=== PATIENT | female | born 1990 | race African-American/Black ===

== ENCOUNTER 2017-02-20 21:14 | Emergency (ER) | payer OTHER ==
[2017-02-20 21:25] VITALS: BP 146/98; PULSE 84; TEMP 98.4; BMI 19.3
--- NOTE | 2017-02-20 21:27 | PDOC ---
Rapid Medical Evaluation Chief Complaint: Nausea/Vomiting Time Seen by Provider: 02/20/17 21:25 Medical Evaluation: Allergies Allergy/AdvReac Type Severity Reaction Status Date / Time Penicillins Allergy Verified 01/18/15 18:59 02/20/17 21:25 I have performed a brief in-person evaluation of this patient. The patient presents with a chief complaint of: N/V since Sunday Pertinent physical exam findings: n/a I have ordered the following: cbc, cmp, etoh, urinalysis, urine preg, The patient will proceed to the ED for further evaluation. LNMP: Jan 24
[2017-02-20 21:44] LABS: URINE APPEARANCE SLCLOUDY; URINE BILIRUBIN NEGATIVE (NEGATIVE); URINE BLOOD NEGATIVE (NEGATIVE); URINE COLOR YELLOW; URINE GLUCOSE (UA) NEGATIVE (NEGATIVE); URINE KETONE 2+ (NEGATIVE); URINE NITRITE NEGATIVE (NEGATIVE); URINE UROBILINOGEN NEGATIVE mg/dL (0.2-1.0)
[2017-02-20 21:59] LABS: URINE PROTEIN 1+ (NEGATIVE)
[2017-02-20 22:02] LABS: CALCIUM OXALATE CRYSTALS RARE /hpf (NONE SEEN); URINE MUCUS MANY; URINE RBC 3 /hpf (0-3); URINE WBC 9 /hpf (3-5)
[2017-02-20 22:08] LABS: BASOPHIL 0.8 % (0-2.0); EOSINOPHIL 0.3 % (0-4.5); MCH 31.8 pg (25.7-33.7); MCHC 33.6 g/dl (32.0-36.0); MEAN CELL VOLUME 94.5 fl (80-96); MEAN PLT VOLUME 10.2 fl (7.5-11.1); NEUTROPHILS 68.8 % (42.8-82.8); PLATELET COUNT 240 K/MM3 (134-434); WHITE BLOOD COUNT 7.7 K/mm3 (4.0-10.0)
[2017-02-20 22:24] LABS: ALBUMIN 4.5 g/dl (3.4-5.0); ALK PHOS 63 U/L (45-117); ANION GAP 9 (8-16); CALCIUM 9.3 mg/dL (8.5-10.1); CO2 28 mmol/L (21-32); CREATININE 0.8 mg/dL (0.55-1.02); GLUCOSE,RANDOM 108 mg/dL (74-106); SGOT/AST 14 U/L (15-37); SGPT/ALT 21 U/L (12-78); TOT PROT 8.3 g/dl (6.4-8.2)
[2017-02-20] MEDS ORDERED: METOCLOPRAMIDE HCL INJECTION 10 MG/2 ML VIAL IVPUSH ONE (22:26)
[2017-02-20] MEDS ORDERED: SODIUM CHLORIDE 1,000 ML IV STA ×2 (22:26→22:28)
[2017-02-20] MEDS ORDERED: METOCLOPRAMIDE HCL INJECTION 10 MG/2 ML VIAL ONE (22:39)
--- NOTE | 2017-02-20 22:49 | PDOC ---
History of Present Illness - General History Source: Patient, Old Records Exam Limitations: No Limitations - History of Present Illness Initial Comments: 02/20/17 22:51 The patient is a 26 year old female with no significant past medical history who presents to the emergency department complaining of nausea for 3 days. The patient states that she last felt normal on Sunday and notes that she drank alcohol Sunday night but only a little. Since, the patient reports associated decreased appetite and vomiting. She denies any recent sick contacts at home or at work. <Tres Albright - Last Filed: 02/20/17 22:51> - General History Source: Patient <Terry Lares - Last Filed: 02/21/17 00:41> - General Chief Complaint: Nausea/Vomiting Stated Complaint: NAUSEA/VOMITING Time Seen by Provider: 02/20/17 22:23 Past History <Tres Albright - Last Filed: 02/20/17 22:51> - Past Medical History COPD: No Disorders: Yes (ovarian cyst) - Reproductive History Cervical CA: No Dysfunctional Uterine Bleeding: No Ectopic : No Endometrial CA: No Polycystic Ovaries: No Therapeutic (s) & number: No Tubal Ligation: No - Immunization History Immunization Up to Date: No - Suicide/Smoking/Psychosocial Hx Smoking History: Never smoked Have you smoked in the past 12 months: No Hx Alcohol Use: No Drug/Substance Use Hx: No Substance Use Type: None <DagojairTerry cohen - Last Filed: 02/21/17 00:41> - Past Medical History Allergies/Adverse Reactions: Allergies Allergy/AdvReac Type Severity Reaction Status Date / Time Penicillins Allergy Verified 02/20/17 21:25 Home Medications: Ambulatory Orders Sulfamethoxazole/Trimethoprim [Bactrim Ds Tablet] 1 each PO BID #10 tablet 05/06 Ondansetron [Zofran Odt -] 4 mg SL BID #10 tab.rapdis 02/21/17 Review of Systems - Review of Systems Able to Perform ROS?: Yes Comments:: 02/20/17 22:51 CONSTITUTIONAL: Absent: fever, no chills, no fatigue EYES: Absent: visual changes ENT: Absent: ear pain, no sore throat CARDIOVASCULAR: Absent: chest pain, no palpitations RESPIRATORY: Absent: cough, no SOB GI: (+) Nausea, Vomiting Absent: abdominal pain, no constipation, no diarrhea GENITOURINARY: Absent: dysuria, no frequency, no hematuria MUSCULOSKELETAL: Absent: back pain, no arthralgia, no myalgia SKIN: Absent: rash <Tres Albright - Last Filed: 02/20/17 22:51> *Physical Exam - Vital Signs Last Vital Signs Temp Pulse Resp BP Pulse Ox 98.4 F 84 18 146/98 98 02/20/17 21:23 02/20/17 21:23 02/20/17 21:23 02/20/17 21:23 02/20/17 21:23 - Physical Exam Comments: 02/20/17 22:51 GENERAL: (+) Mild distress, well-nourished\ HEENT: (+) Dry oral mucosa. Normocephalic, atraumatic. PERRL, EOM intact. CARDIOVASCULAR: Normal S1, S2. Regular rate and rhythm. PULMONARY: Clear to auscultation bilaterally. ABDOMEN: Soft, non-distended, non-tender. EXTREMITIES: Normal ROM in all four extremities. No gross deformities. SKIN: Warm, dry. No rash NEUROLOGICAL: No focal neurological deficits <Tres Albright - Last Filed: 02/20/17 22:51> - Vital Signs Last Vital Signs Temp Pulse Resp BP Pulse Ox 98.4 F 84 18 146/98 98 02/20/17 21:23 02/20/17 21:23 02/20/17 21:23 02/20/17 21:23 02/20/17 21:23 <Terry Lares - Last Filed: 02/21/17 00:41> ED Treatment Course - LABORATORY CBC & Chemistry Diagram: 02/20/17 21:30 02/20/17 21:30 - ADDITIONAL ORDERS Additional order review: Laboratory Results 02/20/17 02/20/17 21:30 21:30 Urine Color Yellow Urine Appearance Slcloudy Urine pH 6.0 Ur Specific [place] 1.029 Urine Protein 1+ H Urine Glucose (UA) Negative Urine Ketones 2+ H Urine Blood Negative Urine Nitrite Negative Urine Bilirubin Negative Urine Urobilinogen Negative Ur Epithelial Cells Many Calcium Oxalate Crystal Rare Urine Mucus Many Urine HCG, Qual Negative Alcohol, Quantitative < 5.0 02/20/17 21:30 RBC 4.25 MCV 94.5 MCHC 33.6 RDW 13.0 D MPV 10.2 Neutrophils % 68.8 Lymphocytes % 22.7 D Monocytes % 7.4 Eosinophils % 0.3 D Basophils % 0.8 <Tres Albright - Last Filed: 02/20/17 22:51> - LABORATORY CBC & Chemistry Diagram: 02/20/17 21:30 02/20/17 21:30 - ADDITIONAL ORDERS Additional order review: Laboratory Results 02/20/17 11 21:30 21:30 Urine Color Yellow Urine Appearance Slcloudy Urine pH 6.0 Ur Specific [place] 1.029 Urine Protein 1+ H Urine Glucose (UA) Negative Urine Ketones 2+ H Urine Blood Negative Urine Nitrite Negative Urine Bilirubin Negative Urine Urobilinogen Negative Ur Epithelial Cells Many Calcium Oxalate Crystal Rare Urine Mucus Many Urine HCG, Qual Negative Alcohol, Quantitative < 5.0 02/20/17 21:30 RBC 4.25 MCV 94.5 MCHC 33.6 RDW 13.0 D MPV 10.2 Neutrophils % 68.8 Lymphocytes % 22.7 D Monocytes % 7.4 Eosinophils % 0.3 D Basophils % 0.8 <Terry Lares - Last Filed: 02/21/17 00:41> Medical Decision Making - Medical Decision Making 02/20/17 22:55 Dr. Lares: The scribe's documentation has been prepared under my direction and personally reviewed by me in its entirery. I confirm that the note above accurately reflects all work, treatment, procedures, and medical decision making performed by me. <Terry Lares - Last Filed: 02/21/17 00:41> *DC/Admit/Observation/Transfer - Attestations Scribe Attestion: 02/20/17 22:52 Documentation prepared by Tres Albright, acting as medical assistant dermatology for Terry Lares DO. <Tres Albright - Last Filed: 02/20/17 22:51> - Discharge Dispostion Admit: No <Terry Lares - Last Filed: 02/21/17 00:41> Diagnosis at time of Disposition: Nausea & vomiting - Discharge Dispostion Disposition: HOME Condition at time of disposition: Improved - Referrals Referrals: Latrice Ricks MD [Staff Physician] - Jayleen Pierre MD [Staff Physician] - - Patient Instructions Printed Discharge Instructions: DI for Nausea -- Adult, DI for Vomiting -- Adult
[2017-02-20] MEDS ORDERED: ONDANSETRON 4 MG/2 ML VIAL IVPUSH STA (23:15)
[2017-02-20 23:23] LABS: MAGNESIUM 2.4 mg/dL (1.8-2.4)
[2017-02-20] MEDS ORDERED: ONDANSETRON 4 MG/2 ML VIAL ONE (23:23)
[2017-02-20] MEDS ORDERED: POTASSIUM CHLORIDE TABS 20 MEQ TABLET.ER (FP) PO ONE (23:35)
[2017-02-21 09:16] LABS: URINE LEUK ESTERASE TRACE (NEGATIVE)
== END 2017-02-21 00:44 | disposition home or self-care (01) ==
LOC: JER 21:14
PROC: 3E0337Z Introduction of Electrolytic and Water Balance Substance into Peripheral Vein, Percutaneous Approach (ICD-10-PCS; principal; 2017-02-20)
PROC: 3E033GC Introduction of Other Therapeutic Substance into Peripheral Vein, Percutaneous Approach (ICD-10-PCS; 2017-02-20)
PROC: 3E033GC Introduction of Other Therapeutic Substance into Peripheral Vein, Percutaneous Approach (ICD-10-PCS; 2017-02-20)
DX: R11.2 Nausea with vomiting, unspecified (principal); E87.6 Hypokalemia
CPT/HCPCS: 36415; 80053; 80307; 81003; 81015; 83690; 83735; 84703; 85025; 99282-25

== ENCOUNTER 2017-10-30 11:37 | Emergency (ER) | payer OTHER ==
[2017-10-30 11:51] VITALS: BMI 21.4
[2017-10-30] MEDS ORDERED: ONDANSETRON 4 MG/2 ML VIAL IVPUSH ONE ×2 (12:38→13:05)
[2017-10-30] MEDS ORDERED: SODIUM CHLORIDE 1,000 ML IV STA (12:38)
[2017-10-30] MEDS ORDERED: FAMOTIDINE 20 MG/50 ML IVPB 20 MG/50 ML MG IVPB ONE ×2 (12:38→13:04)
--- NOTE | 2017-10-30 12:47 | PDOC ---
History of Present Illness - General Chief Complaint: Nausea/Vomiting Stated Complaint: VOMITING, FATIGUE Time Seen by Provider: 10/30/17 12:23 History Source: Patient Exam Limitations: No Limitations - History of Present Illness Initial Comments: 10/30/17 12:39 This is a 27 YOF with h/o multiple episodes of gastritis (admitted a few times for gastritis in the past year) who p/w nausea and nonbloody vomiting, too many episodes to count, and inability to keep down any solids (but able to keep down fluids) over the past 4 days. She denies abdominal pain and states this does not feel like her prior gastritis because it has always presented with abdominal pain, which she does not have currently. She had been on vacation for a few weeks and was in [place], drinking EtOH heavily, and drinking tap water, but not eating any questionable foods. She binge drank EtOH just prior to the onset of vomiting. LMP was last week, denies a chance she is , never had pancreatitis diagnosed in the past, denies fever, chills, diarrhea, constipation, black/bloody stool, rash, MCINTOSH, dizziness, chest pain, SOB, palpitations, leg swelling or pain/tenderness. Past History - Past Medical History Allergies/Adverse Reactions: Allergies Allergy/AdvReac Type Severity Reaction Status Date / Time Penicillins Allergy Verified 10/30/17 11:47 Home Medications: Ambulatory Orders NK [No Known Home Medication] 10/23/17 COPD: No GI Disorders: Yes (GASTRITIS) Disorders: Yes (ovarian cyst) - Reproductive History Cervical CA: No Dysfunctional Uterine Bleeding: No Ectopic : No Endometrial CA: No Polycystic Ovaries: No Therapeutic (s) & number: No Tubal Ligation: No - Immunization History Immunization Up to Date: No - Suicide/Smoking/Psychosocial Hx Smoking History: Current some day smoker Have you smoked in the past 12 months: Yes Information on smoking cessation initiated: No Hx Alcohol Use: No Drug/Substance Use Hx: No Substance Use Type: None Abd/GI Specific PMHX - Complaint Specific PMHX Colitis: No Diverticulitis: No Gall Bladder Disease: No GERD: No Hepatitis: No Irritable Bowel Synd (IBS): No Pancreatitis: No GI Ulcer Disease: No Review of Systems - Review of Systems Able to Perform ROS?: Yes Constitutional: No: Chills, Fever, Unexplained wgt Loss HEENTM: No: Nose Congestion, Throat Pain Respiratory: No: Cough, Shortness of Breath Cardiac (ROS): No: Chest Pain, Palpitations ABD/GI: Yes: Nausea, Vomiting, Other (denies abdominal pain). No: Constipated, Diarrhea, Rectal Bleeding : No: Burning, Dysuria Musculoskeletal: No: Back Pain, Neck Pain Integumentary: No: Bruising, Rash Neurological: No: Headache, Numbness, Tingling, Weakness, Dizziness Endocrine: No: Unexplained Weight Gain, Unexplained Weight Loss *Physical Exam - Vital Signs Last Vital Signs Temp Pulse Resp BP Pulse Ox 98.5 F 83 19 141/86 99 10/30/17 11:47 10/30/17 11:47 10/30/17 11:47 10/30/17 11:47 10/30/17 11:47 - Physical Exam General Appearance: Yes: Nourished, Appropriately Dressed, Other (a bit tearful but comfortable appearing, not actively vomiting but has emesis bag in hand with small amount of saliva-like emesis, answers questions appropriately). No: Apparent Distress HEENT: positive: EOMI, RIO, Normal Voice, Hearing Grossly Normal. negative: Scleral Icterus (R), Scleral Icterus (L), Nasal Congestion Neck: positive: Trachea midline, Supple. negative: Tender, Rigid Respiratory/Chest: positive: Lungs Clear, Normal Breath Sounds. negative: Respiratory Distress, Crackles, Rhonchi, Stridor, Wheezing Cardiovascular: positive: Regular Rhythm, Regular Rate, S1, S2. negative: Edema , JVD, Murmur Gastrointestinal/Abdominal: positive: Normal Bowel Sounds, Flat, Soft. negative : Tender, Organomegaly, Pulsatile Mass, Guarding Musculoskeletal: positive: Normal Inspection. negative: Decreased Range of Motion, Vertebral Tenderness Extremity: positive: Normal Capillary Refill, Normal Inspection, Normal Range of Motion. negative: Tender, Cyanosis Integumentary: positive: Normal Color, Dry, Warm. negative: Erythema, Rash, Bruising Neurologic: positive: seam taper machine II-XII NML intact (grossly), Fully Oriented, Alert, Normal Mood/Affect, Normal Response, Motor Strength 5/5 ED Treatment Course - LABORATORY CBC & Chemistry Diagram: 10/30/17 13:10 10/30/17 13:10 Medical Decision Making - Medical Decision Making Adult female patient p/w n/v and inability to keep down solids in the setting of heavy EtOH use before the onset 4d ago. Initial Vital Signs Temp Pulse Resp BP Pulse Ox 98.5 F 83 19 141/86 99 10/30/17 11:47 10/30/17 11:47 10/30/17 11:47 10/30/17 11:47 10/30/17 11:47 Exam: As noted in Physical Exam section. DDX IBNLT: pancreatitis, gastritis, gastroenteritis, cholecystitis, , cannabis hyperemesis syndrome, withdrawal from EtOH or drugs, etc. W/U ordered: Labs as noted below, EKG TX ordered: IVF Pepcid Zofran EKG: Reviewed; results as noted in ECG Review section. Laboratory Tests 10/30/17 10/30/17 10/30/17 13:10 13:10 13:10 WBC 10.3 H RBC 4.03 Hgb 13.1 Hct 38.3 MCV 95.0 MCH 32.4 MCHC 34.1 RDW 12.6 Plt Count 271 MPV 9.8 Absolute Neuts (auto) 6.9 Neutrophils % 67.5 Lymphocytes % 21.9 Monocytes % 8.7 Eosinophils % 1.2 D Basophils % 0.7 Nucleated RBC % 0 Sodium 136 Potassium 3.1 L Chloride 98 Carbon Dioxide 30 Anion Gap 8 BUN 18 Creatinine 0.9 Creat Clearance w eGFR > 60 Random Glucose 86 Calcium 9.3 Phosphorus 3.9 Magnesium 2.8 H Total Bilirubin 1.9 H AST 16 ALT 21 Alkaline Phosphatase 63 Total Protein 8.3 H Albumin 4.2 Lipase 666 H Serum , Qual Negative Patient mildly hypokalemic and PO potassium ordered but patient vomits this pill immediately. She also vomits an emesis bag full of green fluid at this time. 10 mg Reglan given IVPB. Also 10 mEq KCl given IVPB. Patient states very reluctant to stay overnight; she has an important job interview tomorrow. Reassessment: Repeat VS: ADMIT The Pt is unsafe for discharge at this time. They require further hospital observation, workup, and treatment. Microblog sent to [facility] for admission. Spoke with admitting team petroleum products sales representative, in agreement Pt to be admitted. Decision to Admit order placed to [facility] covering attending DISCHARGE The Pt has gotten significant relief of symptoms with ED medications. Workup is not concerning for emergency-level pathology at this time. The Pt is appropriate for discharge with close outpatient follow up. They are comfortable with this plan and will follow up with their PCP in 1-3 days. Specific return precautions are discussed and they will come back to the ER if necessary. 10/30/17 15:57 *DC/Admit/Observation/Transfer - Referrals - Patient Instructions Additional Instructions: You were seen in the ER for nausea and vomiting. We did an exam, labs, an electrocardiogram, and an ultrasound. Your pancreas enzyme (called a lipase) was a bit elevated. We gave you medications to help with your vomiting and these seemed to help. We recommended to you that you stay in the hospital, but you chose to go home because you have important business to attend to tomorrow. We asked you to sign a "leaving against medical advice" form because our official recommendation is that you stay in the hospital. The reason for this is that you could have a dangerous disease process going on right now; we would need to keep you overnight in the hospital in order to know for sure. Please follow up with your regular PCP as soon as possible. Also follow up with our GI provider (we are providing referral information in this packet). Call their clinic, tell them you were seen in the ER, and tell them you need a follow-up. Please consider coming back to the ER for further evaluation. If you have any new or worsening symptoms, please come back to the ER at any time (24 hours a day). If you are having severe or life threatening symptoms, or symptoms that make it unsafe to drive or have someone drive you, please call 911. - Post Discharge Activity
[2017-10-30] MEDS ORDERED: ONDANSETRON 4 MG/2 ML VIAL ONE (13:04)
--- NOTE | 2017-10-30 13:25 | PDOC ---
Attending Attestation - Resident Resident Name: Ying,Suzette - ED Attending Attestation I have performed the following: I have examined & evaluated the patient, The case was reviewed & discussed with the resident, I agree w/resident's findings & plan, Exceptions are as noted - HPI HPI: 10/30/17 13:03 27 year old female c/ PMH of gastritis p/w nausea and vomiting x 4 days. The patient was recently vacationing in [place]. While in [place], patient developed multiple episodes of vomiting. Denies abdominal pain, fevers, chills, diarrhea. States normal bowel movements. Denies sick contacts. Unsure if she was sick from the water. States that this feels very different from her gastritis. - Physicial Exam PE: 10/30/17 13:07 GENERAL: Awake, alert, and fully oriented, in no acute distress HEAD: No signs of trauma EYES: EOMI, sclera anicteric, conjunctiva clear ENT: Auricles normal inspection, hearing grossly normal, nares patent. Dry mucous membranes NECK: Normal ROM, supple ABDOMEN: Soft, nontender, No guarding, no rebound. No masses EXTREMITIES: Normal range of motion, no edema. No clubbing or cyanosis. No cords, erythema, or tenderness NEUROLOGICAL: Cranial nerves II through XII grossly intact. Normal speech SKIN: Warm, Dry, normal turgor, no rashes or lesions noted. - Medical Decision Making 10/30/17 13:07 Vital Signs Temp Pulse Resp BP Pulse Ox 98.5 F 83 19 141/86 99 10/30/17 11:47 10/30/17 11:47 10/30/17 11:47 10/30/17 11:47 10/30/17 11:47 27 year old female with nausea and vomiting. Differential includes food poisoning, gastritis, gastroenteritis. Will perform a test to r/o hyperemesis gravidarum. Pt denies recent marijuana use. Less likely to be cyclical vomiting. Will obtain labs, give IV hydration for dehydration, and anti-emetics and reassess. 10/30/17 14:23 CBC, BMP 10/30/17 13:10 10/30/17 13:10 CMP Sodium 136 mmol/L (136-145) 10/30/17 13:10 Potassium 3.1 mmol/L (3.5-5.1) L 10/30/17 13:10 Chloride 98 mmol/L (98-107) 10/30/17 13:10 Carbon Dioxide 30 mmol/L (21-32) 10/30/17 13:10 Anion Gap 8 (8-16) 10/30/17 13:10 BUN 18 mg/dL (7-18) 10/30/17 13:10 Creatinine 0.9 mg/dL (0.55-1.02) 10/30/17 13:10 Creat Clearance w eGFR > 60 (>60) 10/30/17 13:10 Random Glucose 86 mg/dL (74-106) 10/30/17 13:10 Calcium 9.3 mg/dL (8.5-10.1) 10/30/17 13:10 Phosphorus 3.9 mg/dL (2.5-4.9) 10/30/17 13:10 Magnesium 2.8 mg/dL (1.8-2.4) H 10/30/17 13:10 Total Bilirubin 1.9 mg/dL (0.2-1.0) H 10/30/17 13:10 AST 16 U/L (15-37) 10/30/17 13:10 ALT 21 U/L (12-78) 10/30/17 13:10 Alkaline Phosphatase 63 U/L (45-117) 10/30/17 13:10 Total Protein 8.3 g/dl (6.4-8.2) H 10/30/17 13:10 Albumin 4.2 g/dl (3.4-5.0) 10/30/17 13:10 Lipase 666 U/L (73-393) H 10/30/17 13:10 Serum , Qual Negative 10/30/17 13:10 Lipase 666. Will treat as pancreatitis. Obtain a RUQ ultrasound. Reasssess. 10/30/17 14:55 Ultrasound reviewed. No acute findings. Pt has been very insistent on going home. It is unclear if this is truly pancreatitis as the patient has no abdominal pain, but does have vomiting. Given these findings, I initially would have wanted to treat the patient as such. However, the patient has been able to tolerate PO liquid but not solids. However, has been still vomiting here in the ED. I advised the patient that she should likely benefit from an admission, but the patient reports that she has a really important job interview tomorrow. The patient does seem to be able to tolerate some PO, and the patient is able to give adequate reason why she couldn 't stay. Will allow her to be discharged with very strict return precautions and have her follow up with a GI practice consultant. Heart Score/ECG Review #1 ECG reviewed & interpreted by me at: 13:45 10/30/17 13:48 NSR 74, no std/jose luis, normal axis, normal intervals, QTC 457 msec
[2017-10-30 13:26] LABS: BASO % 0.7 % (0-2.0); EOS % 1.2 % (0-4.5); HEMATOCRIT 38.3 % (32.4-45.2); HEMOGLOBIN 13.1 GM/dL (10.7-15.3); LYMPH % 21.9 % (8-40); MCH 32.4 pg (25.7-33.7); MCHC 34.1 g/dl (32.0-36.0); MEAN PLT VOLUME 9.8 fl (7.5-11.1); MONO % 8.7 % (3.8-10.2); NEUT % 67.5 % (42.8-82.8); PLATELET COUNT 271 K/MM3 (134-434); RBC 4.03 M/mm3 (3.60-5.2); RDW 12.6 % (11.6-15.6); WHITE BLOOD COUNT 10.3 K/mm3 (4.0-10.0)
[2017-10-30 13:43] LABS: BLOOD UREA NITROGEN 18 mg/dL (7-18); CALCIUM 9.3 mg/dL (8.5-10.1); CHLORIDE 98 mmol/L (98-107); GLUCOSE,RANDOM 86 mg/dL (74-106); POTASSIUM 3.1 mmol/L (3.5-5.1); SODIUM 136 mmol/L (136-145)
[2017-10-30 13:46] LABS: ALBUMIN 4.2 g/dl (3.4-5.0); ANION GAP 8 (8-16); CO2 30 mmol/L (21-32); MAGNESIUM 2.8 mg/dL (1.8-2.4); PHOSPHOROUS 3.9 mg/dL (2.5-4.9); SGOT/AST 16 U/L (15-37); SGPT/ALT 21 U/L (12-78)
[2017-10-30 13:48] LABS: ALK PHOS 63 U/L (45-117); BILIRUBIN,TOTAL 1.9 mg/dL (0.2-1.0); CREATININE 0.9 mg/dL (0.55-1.02); LIPASE 666 U/L (73-393); TOT PROT 8.3 g/dl (6.4-8.2)
[2017-10-30] MEDS ORDERED: POTASSIUM CHLORIDE TABS 20 MEQ TABLET.ER (FP) PO ONE ×2 (14:40→14:57)
[2017-10-30] MEDS ORDERED: SODIUM CHLORIDE 0.9% 500 ML INFUS.BAG IV ONE (14:40)
[2017-10-30] MEDS ORDERED: KCL 10 MEQ IVPB 10 MEQ/100 ML INFUS.BAG IVPB ONE (15:03)
[2017-10-30] MEDS ORDERED: METOCLOPRAMIDE HCL INJECTION 10 MG/2 ML VIAL ONE (15:04)
[2017-10-30] MEDS ORDERED: METOCLOPRAMIDE HCL INJECTION 10 MG/2 ML VIAL IVPUSH ONE (15:27)
[2017-10-30] MEDS ORDERED: KCL 10 MEQ IVPB 10 MEQ/100 ML INFUS.BAG IVPB SCH (15:30)
--- NOTE | 2017-10-30 16:55 | PDOC ---
*Physical Exam - Vital Signs Last Vital Signs Temp Pulse Resp BP Pulse Ox 98.0 F 87 18 134/92 100 10/30/17 15:04 10/30/17 15:04 10/30/17 15:04 10/30/17 15:04 10/30/17 15:04 ED Treatment Course - LABORATORY CBC & Chemistry Diagram: 10/30/17 13:10 10/30/17 13:10 - ADDITIONAL ORDERS Additional order review: Laboratory Results 10/30/17 10/30/17 13:10 13:10 Sodium 136 Potassium 3.1 L Chloride 98 Carbon Dioxide 30 Anion Gap 8 BUN 18 Creatinine 0.9 Creat Clearance w eGFR > 60 Random Glucose 86 Calcium 9.3 Phosphorus 3.9 Magnesium 2.8 H Total Bilirubin 1.9 H AST 16 ALT 21 Alkaline Phosphatase 63 Total Protein 8.3 H Albumin 4.2 Lipase 666 H Serum , Qual Negative 10/30/17 13:10 RBC 4.03 MCV 95.0 MCHC 34.1 RDW 12.6 MPV 9.8 Neutrophils % 67.5 Lymphocytes % 21.9 Monocytes % 8.7 Eosinophils % 1.2 D Basophils % 0.7 - RADIOLOGY Radiology Studies Ordered: Category Date Time Status ABDOMEN US [US] Stat Ultrasound 10/30/17 14:30 Completed - Medications Given in the ED: ED Medications Discontinued Medications Generic Name Dose Route Start Last Admin Trade Name Freq PRN Reason Stop Dose Admin Famotidine/Sodium Chloride 20 mg in 50 mls @ 100 mls/hr 10/30/17 12:38 13:12 Pepcid 20 Mg Premixed Ivpb - IVPB 10/30/17 13:07 100 mls/hr ONCE ONE Administration Sodium Chloride 1,000 mls @ 1,000 mls/hr 10/30/17 12:38 10/30/17 13:12 Normal Saline - IV 10/30/17 13:37 1,000 mls/hr ASDIR STA Administration Potassium Chloride 10 meq in 100 mls @ 100 mls/hr 10/30/17 15:30 10/30/17 15: 30 Potassium Chloride 10 Meq Premix Ivpb - IVPB 10/30/17 16:29 100 mls/hr Q60M RULA Administration Metoclopramide HCl 10 mg 10/30/17 15:27 10/30/17 15:30 Reglan Injection - IVPUSH 10/30/17 15:28 10 mg ONCE ONE Administration Ondansetron HCl 8 mg 10/30/17 12:38 10/30/17 13:12 Zofran Injection IVPUSH 10/30/17 12:39 Not Given NOW ONE Ondansetron HCl 4 mg 10/30/17 13:05 10/30/17 13:12 Zofran Injection IVPUSH 10/30/17 13:06 4 mg ONCE ONE Administration Potassium Chloride 20 meq 10/30/17 14:40 10/30/17 15:08 K-Dur - PO 10/30/17 14:41 Not Given ONCE ONE Sodium Chloride 1,000 ml 10/30/17 14:40 10/30/17 15:08 Normal Saline - IV 10/30/17 14:41 1,000 ml ONCE ONE Administration *DC/Admit/Observation/Transfer Diagnosis at time of Disposition: Vomiting Qualifiers: Vomiting type: unspecified Vomiting Intractability: non-intractable Nausea presence: with nausea Qualified Code(s): R11.2 - Nausea with vomiting, unspecified - Discharge Dispostion Disposition: HOME Condition at time of disposition: Stable Decision to Admit order: No - Prescriptions Prescriptions: Famotidine [Pepcid] 20 mg PO BID PRN #14 tablet PRN Reason: Abdominal Pain Ondansetron HCl [Zofran] 4 mg PO Q8H PRN #20 tablet PRN Reason: Nausea Pantoprazole Sodium [Protonix] 40 mg PO DAILY #14 tablet.dr - Referrals Referrals: Omer Avalos MD [Staff Physician] - - Patient Instructions Printed Discharge Instructions: DI for Vomiting -- Adult Additional Instructions: You were seen in the ER for nausea and vomiting. We did an exam, labs, an electrocardiogram, and an ultrasound. Your pancreas enzyme (called a lipase) was a bit elevated. We gave you medications to help with your vomiting and these seemed to help. Given these findings, if you ever feel like you're too nauseous or unable to take your medications, it is very important that you return to the ER. Please follow up with your regular PCP as soon as possible. Also follow up with our GI provider (we are providing referral information in this packet). Call their clinic, tell them you were seen in the ER, and tell them you need a follow-up. Please consider coming back to the ER for further evaluation. If you have any new or worsening symptoms, please come back to the ER at any time (24 hours a day). If you are having severe or life threatening symptoms, or symptoms that make it unsafe to drive or have someone drive you, please call 911. - Post Discharge Activity
[2017-10-30 17:49] VITALS: BP 135/95; PULSE 69; TEMP 99
--- NOTE | 2017-10-31 11:21 | EKG ---
Test Reason : Blood Pressure : / mmHG Vent. Rate : 074 BPM Atrial Rate : 074 BPM P-R Int : 128 ms QRS Dur : 070 ms QT Int : 412 ms P-R-T Axes : -11 073 041 degrees QTc Int : 457 ms NORMAL SINUS RHYTHM NORMAL ECG NO PREVIOUS ECGS AVAILABLE Confirmed by LUZ ANDREW, RICARDO ([id number]) on 10/31/2017 11:21:20 AM Referred By: Confirmed By:RICARDO ESCOBAR MD
== END 2017-10-30 17:09 | disposition home or self-care (01) ==
LOC: JER 11:37
PROC: 3E033GC Introduction of Other Therapeutic Substance into Peripheral Vein, Percutaneous Approach (ICD-10-PCS; principal; 2017-10-30)
PROC: 3E033GC Introduction of Other Therapeutic Substance into Peripheral Vein, Percutaneous Approach (ICD-10-PCS; 2017-10-30)
PROC: 3E033GC Introduction of Other Therapeutic Substance into Peripheral Vein, Percutaneous Approach (ICD-10-PCS; 2017-10-30)
PROC: 3E033GC Introduction of Other Therapeutic Substance into Peripheral Vein, Percutaneous Approach (ICD-10-PCS; 2017-10-30)
PROC: 3E0337Z Introduction of Electrolytic and Water Balance Substance into Peripheral Vein, Percutaneous Approach (ICD-10-PCS; 2017-10-30)
DX: R11.2 Nausea with vomiting, unspecified (principal); F17.210 Nicotine dependence, cigarettes, uncomplicated; Z87.19 Personal history of other diseases of the digestive system
CPT/HCPCS: 36415; 76700-TC; 80053; 83690; 83735; 84100; 84703; 85025; 93005; 93010; 96365; 96367; 96374; 96375; 99282-25; J7030

== ENCOUNTER 2018-01-08 16:20 | Emergency (ER) | payer OTHER ==
[2018-01-08] MEDS ORDERED: SODIUM CHLORIDE 1,000 ML IV STA ×2 (16:37→18:57)
[2018-01-08] MEDS ORDERED: ONDANSETRON 4 MG/2 ML VIAL IVPUSH ONE (16:37)
--- NOTE | 2018-01-08 16:37 | PDOC ---
Rapid Medical Evaluation Chief Complaint: Nausea/Vomiting Time Seen by Provider: 01/08/18 16:35 Medical Evaluation: Allergies Allergy/AdvReac Type Severity Reaction Status Date / Time Penicillins Allergy Verified 10/30/17 11:47 01/08/18 16:36 The patient presents with a chief complaint of: vomiting I have performed a brief in-person evaluation of this patient. Pertinent physical exam findings: vss, I have ordered the following: labs, , zofran fluids The patient will proceed to the ED for further evaluation.
[2018-01-08 16:39] VITALS: BMI 20.5
[2018-01-08] MEDS ORDERED: FAMOTIDINE 20 MG/50 ML IVPB 20 MG/50 ML MG IVPB ONE ×2 (17:02→17:39)
--- NOTE | 2018-01-08 17:08 | PDOC ---
History of Present Illness - General Chief Complaint: Nausea/Vomiting Stated Complaint: DEHYDRATED, NAUSEA, VOMITING Time Seen by Provider: 01/08/18 16:35 History Source: Patient - History of Present Illness Timing/Duration: reports: other Quality: reports: severe Past History - Past Medical History Allergies/Adverse Reactions: Allergies Allergy/AdvReac Type Severity Reaction Status Date / Time Penicillins Allergy Verified 10/30/17 11:47 Home Medications: Ambulatory Orders NK [No Known Home Medication] 01/08/18 COPD: No GI Disorders: Yes (GASTRITIS) Disorders: Yes (ovarian cyst) - Reproductive History Cervical CA: No Dysfunctional Uterine Bleeding: No Ectopic : No Endometrial CA: No Polycystic Ovaries: No Therapeutic (s) & number: No Tubal Ligation: No - Immunization History Immunization Up to Date: No - Suicide/Smoking/Psychosocial Hx Smoking History: Never smoked Have you smoked in the past 12 months: No Information on smoking cessation initiated: No Hx Alcohol Use: Yes (3-4 days a week) Drug/Substance Use Hx: No Substance Use Type: Alcohol Abd/GI Specific PMHX - Complaint Specific PMHX Colitis: No Diverticulitis: No Gall Bladder Disease: No GERD: No Hepatitis: No Irritable Bowel Synd (IBS): No Pancreatitis: No GI Ulcer Disease: No Review of Systems - Review of Systems Constitutional: Yes: Weakness. No: Fever ABD/GI: Yes: Nausea, Vomiting. No: Diarrhea, Abdominal cramping : No: Dysuria *Physical Exam - Vital Signs Last Vital Signs Temp Pulse Resp BP Pulse Ox 98.7 F 84 17 129/90 100 01/08/18 16:31 01/08/18 16:31 01/08/18 16:31 01/08/18 16:31 01/08/18 16:31 - Physical Exam General Appearance: Yes: Appropriately Dressed, Mild Distress HEENT: positive: Normal Voice Neck: positive: Supple Respiratory/Chest: negative: Respiratory Distress Gastrointestinal/Abdominal: positive: Soft. negative: Tender Musculoskeletal: negative: CVA Tenderness Integumentary: positive: Dry, Warm Neurologic: positive: Fully Oriented, Alert, Normal Mood/Affect ED Treatment Course - LABORATORY CBC & Chemistry Diagram: 01/08/18 17:30 01/08/18 17:30 Medical Decision Making - Medical Decision Making 01/08/18 17:04 27-year-old female, endorses episodes of gastritis usually related to excessive alcohol use per patient, with multiple ED visits for nausea,vomiting in the setting of alcohol, presents with same today. Patient states since binge drinking Sunday night, has had numerous e/o nausea, vomiting and states she now feels weak and dehydrated. Symptoms similar to in the past. No hematemesis , abdominal pain, change in bowel movements, fever or chills. Patient admits that she drinks almost daily, mostly wine, but does drink harder beverages at times and is concerned about how much she drinks. Reports having multiple stressors at home. Does have family history of substance abuse. No prior admission to detox or rehabilitation per patient See exam N/v in setting of ETOH use Stable but nikki uncomfortable Abd benign -IVF -antiemetic -labs -reasess 01/08/18 17:29 01/08/18 18:58 Labs unremarkable. IV fluids in progress. Patient signed out to KRISTY Caceres at this time pending reassessment and po challenge *DC/Admit/Observation/Transfer Diagnosis at time of Disposition: Nausea and vomiting Qualifiers: Vomiting type: unspecified Vomiting Intractability: unspecified Qualified Code( s): R11.2 - Nausea with vomiting, unspecified - Discharge Dispostion Condition at time of disposition: Improved - Referrals - Patient Instructions - Post Discharge Activity
[2018-01-08] MEDS ORDERED: ONDANSETRON 4 MG/2 ML VIAL ONE (17:37)
[2018-01-08 17:42] LABS: BASO % 0.7 % (0-2.0); EOS % 0.4 % (0-4.5); HEMATOCRIT 37.1 % (32.4-45.2); HEMOGLOBIN 12.5 GM/dL (10.7-15.3); LYMPH % 17.7 % (8-40); MCH 32.5 pg (25.7-33.7); MCHC 33.7 g/dl (32.0-36.0); MEAN CELL VOLUME 96.2 fl (80-96); MEAN PLT VOLUME 10.1 fl (7.5-11.1); NEUT % 74.2 % (42.8-82.8); PLATELET COUNT 281 K/MM3 (134-434); RBC 3.85 M/mm3 (3.60-5.2); RDW 12.7 % (11.6-15.6); WHITE BLOOD COUNT 9.5 K/mm3 (4.0-10.0)
[2018-01-08 18:07] LABS: URINE APPEARANCE SLCLOUDY; URINE BILIRUBIN NEGATIVE (<2.0 mg/dL); URINE COLOR DKYELLOW; URINE GLUCOSE (UA) NEGATIVE (NEGATIVE); URINE KETONE TRACE (NEGATIVE); URINE LEUK ESTERASE NEGATIVE (NEGATIVE); URINE NITRITE NEGATIVE (NEGATIVE); URINE PROTEIN 1+ (NEGATIVE); URINE UROBILINOGEN NEGATIVE mg/dL (0.2-1.0)
[2018-01-08 18:23] LABS: EPI CELLS MANY /HPF (FEW); URINE MUCUS MODERATE
[2018-01-08 18:45] VITALS: TEMP 98.8
[2018-01-08 18:54] LABS: ALBUMIN 4.3 g/dl (3.4-5.0); ALK PHOS 66 U/L (45-117); ANION GAP 12 MMOL/L (8-16); BLOOD UREA NITROGEN 16 mg/dL (7-18); CALCIUM 9.9 mg/dL (8.5-10.1); CHLORIDE 104 mmol/L (98-107); CO2 25 mmol/L (21-32); CREATININE 0.7 mg/dL (0.55-1.3); GLUCOSE,RANDOM 92 mg/dL (74-106); LIPASE 145 U/L (73-393); POTASSIUM 3.4 mmol/L (3.5-5.1); SGOT/AST 19 U/L (15-37); SGPT/ALT 22 U/L (13-61); SODIUM 140 mmol/L (136-145); TOT PROT 8.6 g/dl (6.4-8.2)
[2018-01-08] MEDS ORDERED: SUCRALFATE 1 GM TABLET (FP) PO ONE (19:30)
[2018-01-08] MEDS ORDERED: SUCRALFATE 1 GM TABLET (FP) ONE (19:37)
[2018-01-08] MEDS ORDERED: METOCLOPRAMIDE HCL INJECTION 10 MG/2 ML VIAL IVPB ONE (20:26)
--- NOTE | 2018-01-08 20:27 | PDOC ---
*Physical Exam - Vital Signs Last Vital Signs Temp Pulse Resp BP Pulse Ox 98.8 F 75 20 145/86 100 01/08/18 17:44 01/08/18 17:44 01/08/18 17:44 01/08/18 17:44 01/08/18 16:31 ED Treatment Course - LABORATORY CBC & Chemistry Diagram: 01/08/18 17:30 01/08/18 17:30 - ADDITIONAL ORDERS Additional order review: Laboratory Results 01/08/18 01/08/18 01/08/18 17:30 17:30 17:30 Sodium 140 Potassium 3.4 L Chloride 104 Carbon Dioxide 25 Anion Gap 12 BUN 16 Creatinine 0.7 Creat Clearance w eGFR > 60 Random Glucose 92 Calcium 9.9 Total Bilirubin 2.0 H AST 19 ALT 22 Alkaline Phosphatase 66 Total Protein 8.6 H Albumin 4.3 Lipase 145 Urine Color Dkyellow Urine Appearance Slcloudy Urine pH 5.0 Ur Specific [place] 1.030 Urine Protein 1+ H Urine Glucose (UA) Negative Urine Ketones Trace H Urine Blood Negative Urine Nitrite Negative Urine Bilirubin Negative Urine Urobilinogen Negative Ur Leukocyte Esterase Negative Urine WBC (Auto) 12 Urine RBC (Auto) 12 Ur Epithelial Cells Many Urine Mucus Moderate Urine HCG, Qual Negative 01/08/18 17:30 RBC 3.85 MCV 96.2 H MCHC 33.7 RDW 12.7 MPV 10.1 Neutrophils % 74.2 Lymphocytes % 17.7 Monocytes % 7.0 Eosinophils % 0.4 Basophils % 0.7 - Medications Given in the ED: ED Medications Discontinued Medications Generic Name Dose Route Start Last Admin Trade Name Freq PRN Reason Stop Dose Admin Sodium Chloride 1,000 mls @ 1,000 mls/hr 01/08/18 16:37 01/08/18 17:25 Normal Saline - IV 01/08/18 17:36 1,000 mls/hr ASDIR STA Administration Famotidine/Sodium Chloride 20 mg in 50 mls @ 100 mls/hr 01/08/18 17:02 17:54 Pepcid 20 Mg Premixed Ivpb - IVPB 01/08/18 17:31 100 mls/hr ONCE ONE Administration Sodium Chloride 1,000 mls @ 1,000 mls/hr 01/08/18 18:57 01/08/18 19:00 Normal Saline - IV 01/08/18 19:56 1,000 mls/hr ASDIR STA Administration Ondansetron HCl 4 mg 01/08/18 16:37 01/08/18 17:39 Zofran Injection IVPUSH 01/08/18 16:38 4 mg ONCE ONE Administration Sucralfate 2 gm 01/08/18 19:30 01/08/18 19:43 Carafate - PO 01/08/18 19:31 Not Given NOW ONE Medical Decision Making - Medical Decision Making 01/08/18 22:10 able to tolerate fluids. *DC/Admit/Observation/Transfer Diagnosis at time of Disposition: Nausea and vomiting Qualifiers: Vomiting type: unspecified Vomiting Intractability: unspecified Qualified Code( s): R11.2 - Nausea with vomiting, unspecified - Discharge Dispostion Disposition: HOME Condition at time of disposition: Improved - Prescriptions Prescriptions: Sucralfate Oral Suspension [Carafate *Oral Susp*] 1 gm PO QID #100 ml - Referrals Referrals: Zion Garcia MD [Staff Physician] - Call tomorrow - Patient Instructions Printed Discharge Instructions: DI for Vomiting -- Adult Additional Instructions: please follow up with GI. refrain from drinking alcohol. - Post Discharge Activity Forms/Work/School Notes: Back to Work
[2018-01-08] MEDS ORDERED: SUCRALFATE 1 GM/10 ML UNIT DOSE CUPS PO ONE (20:30)
[2018-01-08] MEDS ORDERED: METOCLOPRAMIDE HCL INJECTION 10 MG/2 ML VIAL ONE (20:59)
[2018-01-08 22:19] VITALS: BP 128/74; PULSE 76
== END 2018-01-08 22:19 | disposition home or self-care (01) ==
LOC: JER 16:20
DX: R11.2 Nausea with vomiting, unspecified (principal)
CPT/HCPCS: 36415; 80053; 81003; 81015; 83690; 84703; 85025; 99283-25; J7030

== ENCOUNTER 2018-10-28 14:34 | Emergency (ER) | payer BC, OTHER ==
[2018-10-28 14:54] VITALS: BP 129/55; PULSE 86; TEMP 97.8; BMI 25.8
--- NOTE | 2018-10-28 14:57 | PDOC ---
Rapid Medical Evaluation Chief Complaint: Chest Pain Time Seen by Provider: 10/28/18 14:54 Medical Evaluation: Allergies Allergy/AdvReac Type Severity Reaction Status Date / Time Penicillins Allergy Verified 10/30/17 11:47 Vital Signs Temp Pulse Resp BP Pulse Ox 97.8 F 86 18 129/55 L 98 10/28/18 14:47 10/28/18 14:47 10/28/18 14:47 10/28/18 14:47 10/28/18 14:47 10/28/18 14:54 I have performed a brief in-person evaluation of this patient. The patient presents with a chief complaint of: intermittent chest pain and back pain for 3 days which she believes from stress as 2 of her friends just dies 3 weeks ago. also report 2 weeks h/o left thumb pain which she does not recall what happened Pertinent physical exam findings: A&O x 3 in NAD. heart RRR. lungs CTAB. I have ordered the following: EKG, cmc, cmp, cardiac profile The patient will proceed to the ED for further evaluation. Discharge Disposition - Diagnosis Pain of left thumb Chest pain Qualifiers: Chest pain type: unspecified Qualified Code(s): R07.9 - Chest pain, unspecified - Discharge Dispostion Condition at time of disposition: Stable - Referrals - Patient Instructions - Post Discharge Activity
--- NOTE | 2018-10-28 15:42 | PDOC ---
History of Present Illness - General Chief Complaint: Chest Pain Stated Complaint: CHEST PAIN/LT THUM INJURY Time Seen by Provider: 10/28/18 14:54 History Source: Patient - History of Present Illness Presenting Symptoms: Chest Pain Timing/Duration: reports: intermittent Past History - Past Medical History Allergies/Adverse Reactions: Allergies Allergy/AdvReac Type Severity Reaction Status Date / Time Penicillins Allergy Verified 10/30/17 11:47 Home Medications: Ambulatory Orders Sucralfate Oral Suspension [Carafate *Oral Susp*] 1 gm PO QID #100 ml 01/08/18 COPD: No GI Disorders: Yes (GASTRITIS) Disorders: Yes (ovarian cyst) - Reproductive History Cervical CA: No Dysfunctional Uterine Bleeding: No Ectopic : No Endometrial CA: No Polycystic Ovaries: No Therapeutic (s) & number: No Tubal Ligation: No - Immunization History Immunization Up to Date: No - Suicide/Smoking/Psychosocial Hx Smoking History: Never smoked Have you smoked in the past 12 months: No Information on smoking cessation initiated: No Hx Alcohol Use: No Drug/Substance Use Hx: No Substance Use Type: Alcohol Cardiac Specific PMH - Complaint Specific PMHX GERD: No Review of Systems - Review of Systems Constitutional: No: Chills, Fever Respiratory: No: Cough, Shortness of Breath Cardiac (ROS): Yes: Chest Pain. No: Lightheadedness, Palpitations, Syncope ABD/GI: No: Nausea, Vomiting *Physical Exam - Vital Signs Last Vital Signs Temp Pulse Resp BP Pulse Ox 97.8 F 86 18 129/55 L 98 10/28/18 14:47 10/28/18 14:47 10/28/18 14:47 10/28/18 14:47 10/28/18 14:47 - Physical Exam Comments: 10/28/18 16:10 Pt crying in exam room when talking about the of her friends General Appearance: Yes: Appropriately Dressed HEENT: positive: Normal Voice Neck: positive: Supple Respiratory/Chest: positive: Lungs Clear, Normal Breath Sounds. negative: Respiratory Distress Cardiovascular: positive: Regular Rate, S1, S2 Gastrointestinal/Abdominal: positive: Soft. negative: Tender Integumentary: positive: Dry, Warm Neurologic: positive: Fully Oriented, Alert, Normal Mood/Affect Medical Decision Making - Medical Decision Making 10/28/18 15:35 28 yo F, no sig hx, p/w CP. Pt states over the past 3 weeks has multiple deaths in her life including 2 friends who got murdered and 1 friend who committed suicide. Since then patient has had intermittent vague chest pain with no worsening or exacerbating factors, lasts for seconds and then go away. No shortness of breath, diaphoresis, nausea, vomiting, palpitations, leg pain or swelling. Not on any control. Only smokes marijuana. No sig fmhx. Pt denies SI/HI see exam CP in setting of stressors No RF for CAD, PERcs out Well nikki and stable here w/ clear chest/lungs EKG normal as d/w ED attg Pt discharged with reassurance and to f/u with PMD as needed *DC/Admit/Observation/Transfer Diagnosis at time of Disposition: Pain of left thumb Chest pain Qualifiers: Chest pain type: unspecified Qualified Code(s): R07.9 - Chest pain, unspecified - Discharge Dispostion Disposition: HOME Condition at time of disposition: Stable - Referrals - Patient Instructions Printed Discharge Instructions: DI for Chest Pain Additional Instructions: The cause of your symptoms might be stress related. Your EKG was normal today If your symptoms return, please follow up with PMD If you experience suicidal ideation, please call [phone] right away It appears that you might have sprained your hand Take motrin or tylenol as needed Follow up with Dr Khanna or orthopedics as needed - Post Discharge Activity Forms/Work/School Notes: Back to Work
--- NOTE | 2018-10-29 09:30 | EKG ---
Test Reason : Blood Pressure : / mmHG Vent. Rate : 080 BPM Atrial Rate : 080 BPM P-R Int : 140 ms QRS Dur : 072 ms QT Int : 366 ms P-R-T Axes : 025 059 023 degrees QTc Int : 422 ms NORMAL SINUS RHYTHM WITH SINUS ARRHYTHMIA NORMAL ECG WHEN COMPARED WITH ECG OF 30-OCT-2017 13:41, NO SIGNIFICANT CHANGE WAS FOUND Confirmed by Earle Tolliver MD ([id number]) on 10/29/2018 9:29:43 AM Referred By: Confirmed By:Earle Tolliver MD
== END 2018-10-28 16:07 | disposition home or self-care (01) ==
LOC: JER 14:34
DX: R07.9 Chest pain, unspecified (principal); M79.645 Pain in left finger(s)
CPT/HCPCS: 93005; 93010; 99282-25

== ENCOUNTER 2018-11-12 08:01 | Emergency (ER) | payer BC, OTHER | END 2018-11-12 10:25 | disposition home or self-care (01) | LOC: JER 08:01 ==

== ENCOUNTER 2020-12-01 12:33 | Emergency (ER) | payer BC, OTHER ==
[2020-12-01 12:39] VITALS: BP 129/87; PULSE 96; TEMP 98.3; BMI 28.3
[2020-12-01] MEDS ORDERED: ONDANSETRON 4 MG/2 ML VIAL IVPUSH ONE (14:07)
[2020-12-01] MEDS ORDERED: SODIUM CHLORIDE 1,000 ML IV STA (14:07)
[2020-12-01] MEDS ORDERED: FAMOTIDINE 20 MG/50 ML IVPB 20 MG/50 ML MG IVPB ONE (14:07)
[2020-12-01] MEDS ORDERED: MAG HYDROX/AL HYDROX/SIMETH 30 ML UNIT-DOSE CUP PO ONE (14:07)
== END 2020-12-01 15:20 | disposition left against medical advice (07) ==
LOC: JER 12:33
DX: R10.84 Generalized abdominal pain (principal)
CPT/HCPCS: 99283-25

== ENCOUNTER 2023-04-16 11:08 | Emergency (ER) | payer OTHER ==
[2023-04-16 11:46] VITALS: BP 120/77; PULSE 85; RESP 18; TEMP 98; BMI 27.4
[2023-04-16 13:43] LABS: BASO % 0.8 % (0-2.0); EOS % 4.3 % (0-4.5); HEMATOCRIT 34.3 % (32.4-45.2); HEMOGLOBIN 11.2 GM/dL (10.7-15.3); LYMPH % 25.6 % (8-40); MCH 30.7 pg (25.7-33.7); MCHC 32.8 g/dl (32.0-36.0); MEAN CELL VOLUME 93.8 fl (80-96); MEAN PLT VOLUME 9.3 fl (7.5-11.1); NEUT % 61.3 % (42.8-82.8); PLATELET COUNT 256 10^3/uL (134-434); RBC 3.65 M/mm3 (3.60-5.2); RDW 13.9 % (11.6-15.6); WHITE BLOOD COUNT 7.5 K/mm3 (4.0-10.0)
[2023-04-16 14:05] LABS: POTASSIUM 3.8 mmol/L (3.5-5.1)
[2023-04-16 14:07] LABS: CALCIUM 8.9 mg/dL (8.5-10.1)
[2023-04-16 14:08] LABS: BLOOD UREA NITROGEN 11.4 mg/dL (7-18)
[2023-04-16 14:11] LABS: CREATININE 0.7 mg/dL (0.55-1.3)
[2023-04-16 14:12] LABS: TOT PROT 7.6 g/dl (6.4-8.2)
[2023-04-16 14:13] LABS: BILIRUBIN,TOTAL 0.8 mg/dL (0.2-1)
[2023-04-16 14:15] LABS: ALBUMIN 3.6 g/dl (3.4-5.0)
== END 2023-04-16 15:12 | disposition home or self-care (01) ==
LOC: JER 11:08
DX: R07.2 Precordial pain (principal); R42 Dizziness and giddiness
CPT/HCPCS: 36415; 71046-TC-FY; 80053; 84484; 85025; 93005; 93010; 99285-25

== ENCOUNTER → 2023-12-12 | Day surgery (SDC) | payer OTHER | END | disposition home or self-care (01) | LOC: JMAMMO-SUR 10:21 | PROVIDERS: ATTEND Obstetrics & Gynecology | PROC: 0HBU3ZX Excision of Left Breast, Percutaneous Approach, Diagnostic (ICD-10-PCS; principal; 2023-12-12) | DX: D24.2 Benign neoplasm of left breast (principal) | CPT/HCPCS: 19083; 87899; 88305-TC; A4648 ==